=== PATIENT | female | born 2000 | race American Indian/Alaskan Native ===

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

== ENCOUNTER 2022-03-22 03:49 | Emergency (ER) | payer OTHER ==
[2022-03-22 04:09] VITALS: BP 115/74
--- NOTE | 2022-03-22 09:02 | Emergency Department Report ---
Minor Respiratory - HPI Chief Complaint: Upper Respiratory Infection Stated Complaint: CHEST PAIN/COUGH Time Seen by Provider: 03/22/22 08:08 Duration: 3 Days Pain Location: Chest Severity: mild Minor Respiratory: Yes Able to Tolerate Fluids, Yes Cough, No Rhinorrhea, No Sore Throat, No Ear Pain, No Sick Contacts, No Hemoptysis, No Chest Pain, No Shortness of Breath, No Fever Other History: 21 yo comes in with inc wheezing. she is on inhaler and neb. no fever. no chills. no purulent sputum. reports having her meds at home ED Review of Systems ROS: Stated complaint: CHEST PAIN/COUGH Other details as noted in HPI Comment: All other systems reviewed and negative ED Past Medical Hx - Past Medical History Previous Medical History?: Yes Hx Seizures: Yes Hx Asthma: Yes - Surgical History Past Surgical History?: No - Family History Family history: no significant - Social History Smoking Status: Never Smoker Substance Use Type: None - Medications Home Medications: Home Medications Medication Instructions Recorded Confirmed Last Taken Type ALBUTEROL NEB's [Proventil 0.083% 2.5 mg IH TID PRN #30 neb 07/10/21 Unknown Rx NEBS] Albuterol Mdi (or & Nicu Only) 1 puff IH Q4-6H PRN #1 inha 07/10/21 Unknown Rx [ProAir HFA Inhaler] Fluticasone [Flonase] 1 spray NS QDAY #1 bottle 03/22/22 Unknown Rx Montelukast [Singulair] 10 mg PO QPM #14 tablet 03/22/22 Unknown Rx guaiFENesin ER [Mucinex ER] 600 mg PO BID #14 tablet.er 03/22/22 Unknown Rx predniSONE [Deltasone] 20 mg PO QDAY #5 tab 03/22/22 Unknown Rx Minor Respiratory Exam - Exam General: Vital signs noted. No distress. Alert and acting appropriately. HEENT: Yes Moist Mucous Membranes, No Pharyngeal Erythema, No Pharyngeal Exudates, No Rhinorrhea, No Conjuctival Injection, No Frontal Tenderness, No Maxillary Tenderness Ear: Neither TM Bulge, Neither TM Erythema, Neither EAC Pain, Neither EAC Discharge Neck: Yes Supple, No Adenopathy Lungs: Yes Good Air Exchange, No Wheezes, No Ronchi, No Stridor, No Cough, No Labored Respirations, No Retractions, No Use of Accessory Muscles, No Other Abnormal Lung Sounds Heart: Yes Regular, No Murmur Abdomen: Yes Normal Bowel Sounds, No Tenderness, No Peritoneal Signs Skin: No Rash, No Edema Neurologic: Alert and oriented, no deficits. Musculoskeletal: Unremarkable. ED Course Vital Signs 03/22/22 04:06 Temperature 97.1 F L Pulse Rate 105 H Respiratory 16 Rate Blood Pressure 115/74 O2 Sat by Pulse 98 Oximetry ED Medical Decision Making - Medical Decision Making Vital Signs 03/22/22 04:06 Temperature 97.1 F L Pulse Rate 105 H Respiratory 16 Rate Blood Pressure 115/74 O2 Sat by Pulse 98 Oximetry no wheezing on exam no fever/chills dc home with dc plan of care including diet, meds, activity and follow up. she verbalizes understanding of plan of care. - Differential Diagnosis asthma ae Critical care attestation.: If time is entered above; I have spent that time in minutes in the direct care of this critically ill patient, excluding procedure time. ED Disposition Clinical Impression: Asthma with acute exacerbation Qualifiers: Asthma severity: mild Asthma persistence: intermittent Qualified Code(s): J45.21 - Mild intermittent asthma with (acute) exacerbation Disposition: HOME / SELF CARE / HOMELESS Is pt being admited?: No Does the pt Need Aspirin: No Condition: Stable Instructions: Asthma, Adult Additional Instructions: meds as ordered follow up with pcp referral below continue home inhaler and nebs no antibiotics indicated at this time. Prescriptions: predniSONE [Deltasone] 20 mg PO QDAY #5 tab Fluticasone [Flonase] 1 spray NS QDAY #1 bottle guaiFENesin ER [Mucinex ER] 600 mg PO BID #14 tablet.er Montelukast [Singulair] 10 mg PO QPM #14 tablet Referrals: YUNI BROWN MD [Primary Care Provider] - 3-5 Days Forms: Work/School Release Form(ED) Time of Disposition: 09:00
== END 2022-03-22 09:35 | disposition home or self-care (01) ==
LOC: ED 03:49
DX: J45.901 Unspecified asthma with (acute) exacerbation (principal); R56.9 Unspecified convulsions
CPT/HCPCS: 99282